=== PATIENT | female | born 1960 | race African-American/Black ===

== ENCOUNTER 2016-11-08 13:37 | Inpatient (IN) | payer MEDICAID ==
[~2016-11-08] VITALS: Ht 167.6 cm; Wt 47.6 kg
[2016-11-08] MEDS ORDERED: MORPHINE SULFATE 4 MG/ML CPJ (NOT FOR IM USE) IV ONE (14:45)
[2016-11-08 14:46] LABS: HEMATOCRIT. 25.1 % (36.0-48.0); HEMOGLOBIN. 8.6 g/dL (12.0-16.0); MEAN CORPUSCULAR HEMOGLOBIN 29.3 pg (28.0-32.0); MEAN CORPUSCULAR VOLUME 85.6 fL (81.0-99.0); MEAN PLATELET VOLUME 7.5 fl (7.4-10.4); PLATELET 233 x1000/uL (130-400); RED BLOOD CELL COUNT 2.93 mill/uL (4.2-5.4); RED CELL DISTRIBUTION WIDTH 22.3 % (11.6-14.6)
[2016-11-08 14:54] LABS: INR 1.1; PROTHROMBIN TIME 11.8 sec (9.4-11.6)
[2016-11-08 14:55] LABS: CHLORIDE 100 mEq/L (98-107)
[2016-11-08 14:59] LABS: CARBON DIOXIDE 32 mEq/L (21-32)
[2016-11-08 15:04] LABS: TROPONIN I < 0.02 ng/mL (0.00-0.04)
[2016-11-08] MEDS ORDERED: KCL 20MEQ/100ML PREMIX 100 ML IV ONE (15:15)
[2016-11-08] MEDS ORDERED: POTASSIUM CHLORIDE 20MEQ TABLET SR PO ONE (15:15)
[2016-11-08 15:39] LABS: PLATELET ESTIMATE NORMAL
[2016-11-08] MEDS ORDERED: MAGNESIUM 2 G PREMIX 50 ML IV ONE (15:45)
[2016-11-08 16:10] LABS: HCG SCREEN NEGATIVE
[2016-11-08] MEDS ORDERED: KETOROLAC 30MG/ML VIAL IV ONE (19:15)
[2016-11-08 19:50] LABS: CLARITY URINE CLEAR (CLEAR); COLOR URINE DARK YELLOW (YELLOW); GLUCOSE URINE NEGATIVE (NEGATIVE); KETONES URINE NEGATIVE (NEGATIVE); LEUKOCYTE ESTERASE URINE NEGATIVE (NEGATIVE); NITRITE URINE NEGATIVE (NEGATIVE); OCCULT BLOOD URINE NEGATIVE (NEGATIVE); PH URINE 5.5 (4.5-8.0); PROTEIN URINE 1+ (NEGATIVE); SPECIFIC GRAVITY URINE 1.024 (1.005-1.030)
[2016-11-08 20:00] VITALS: BP 128/81
[2016-11-08 20:16] VITALS: BP 128/81
[2016-11-08] MEDS ORDERED: ONDANSETRON HCL 4MG/2ML VIAL IV PRN (22:15)
[2016-11-08] MEDS ORDERED: HYDR-3933 PO (22:20)
[2016-11-08] MEDS ORDERED: WARF2TAB55 PO (22:21)
[2016-11-08] MEDS ORDERED: ONDA4TAB5 PO (22:21)
[2016-11-08] MEDS ORDERED: DEXA4TAB PO (22:27)
[2016-11-08] MEDS ORDERED: OMEP20CA10 PO (22:27)
[2016-11-08] MEDS ORDERED: TRAZ-132 PO (22:27)
[2016-11-08] MEDS ORDERED: SENN-22 PO (22:27)
[2016-11-08] MEDS ORDERED: SERT50TA PO (22:27)
[2016-11-08] MEDS ORDERED: DIPH25CA83 PO (22:27)
[2016-11-08] MEDS ORDERED: MORP15TA67 PO (22:28)
[2016-11-08] MEDS ORDERED: DIPHENHYDRAMINE 25MG CAPSULE PO PRN (22:46)
[2016-11-08] MEDS: HYDROCODONE/ACETAMINOPHEN 10/325MG TABLET PO PRN (23:04)
[2016-11-08] MEDS: TRAZODONE HCL 100MG TABLET PO SCH (23:28)
[2016-11-09] VITALS: BP 119/85
[2016-11-09 04:00] VITALS: BP 115/71
[2016-11-09] MEDS: MORPHINE SULFATE 2 MG/ML CPJ (NOT FOR IM USE) IV PRN ×3 (05:49→21:21)
[2016-11-09] MEDS: OMEPRAZOLE 20MG CAPSULE EXTENDED RELEASE PO SCH (06:45)
[2016-11-09 08:00] VITALS: BP 109/79
[2016-11-09] MEDS: DEXAMETHASONE 4MG TABLET PO SCH (08:08)
[2016-11-09] MEDS: ENOXAPARIN 30MG/0.3ML SYR SUBCUT SCH (08:08)
[2016-11-09] MEDS: SENNOSIDES 8.6MG TABLET PO SCH (08:08)
[2016-11-09 08:31] LABS: CARBON DIOXIDE 30 mEq/L (21-32)
[2016-11-09 08:52] LABS: CHLORIDE 99 mEq/L (98-107)
[2016-11-09] MEDS ORDERED: ENOXAPARIN 40MG/0.4ML SYR SUBCUT SCH (09:00)
[2016-11-09] MEDS ORDERED: DEXAMETHASONE 4MG TABLET PO SCH (09:00)
[2016-11-09] MEDS: HYDROCODONE/ACETAMINOPHEN 10/325MG TABLET PO PRN (09:05)
[2016-11-09] MEDS ORDERED: POTASSIUM CHLORIDE 20MEQ TABLET SR PO NR ×2 (11:15→22:15)
[2016-11-09 11:34] VITALS: BP 119/77
[2016-11-09 11:42] LABS: HEMOGLOBIN. 9.1 g/dL (12.0-16.0); MEAN CORPUSCULAR HEMOGLOBIN 29.2 pg (28.0-32.0); MEAN CORPUSCULAR VOLUME 86.5 fL (81.0-99.0); MEAN PLATELET VOLUME 8.8 fl (7.4-10.4); PLATELET 239 x1000/uL (130-400); RED BLOOD CELL COUNT 3.12 mill/uL (4.2-5.4); RED CELL DISTRIBUTION WIDTH 21.9 % (11.6-14.6)
[2016-11-09] MEDS: LORAZEPAM 2MG/ML CPJ IV PRN (12:53)
[2016-11-09 15:58] VITALS: BP 103/76
[2016-11-09] MEDS: TRAZODONE HCL 100MG TABLET PO SCH (17:18)
[2016-11-09] MEDS: DOCUSATE SODIUM 100MG CAPSULE PO SCH (17:18)
[2016-11-09] MEDS ORDERED: WARFARIN SODIUM 2.5MG TABLET PO SCH (18:00)
[2016-11-09 20:00] VITALS: BP 123/96
[2016-11-09] MEDS ORDERED: POTASSIUM CHLORIDE INJ 40 MEQ in DEXT 5% WATER 250 ML IV NR (21:00)
[2016-11-10] VITALS (7 sets, daily range): BP systolic 99–136; BP diastolic 75–91
[2016-11-10] MEDS: MORPHINE SULFATE 2 MG/ML CPJ (NOT FOR IM USE) IV PRN ×4 (02:17→21:53)
[2016-11-10] MEDS: HYDROCODONE/ACETAMINOPHEN 10/325MG TABLET PO PRN ×2 (04:10→09:00)
[2016-11-10] MEDS: LORAZEPAM 2MG/ML CPJ IV PRN ×2 (06:10→09:56)
[2016-11-10] MEDS: OMEPRAZOLE 20MG CAPSULE EXTENDED RELEASE PO SCH ×3 (06:12→06:29)
[2016-11-10 06:47] LABS: PROTHROMBIN TIME 10.7 sec (9.4-11.6)
[2016-11-10 06:48] LABS: PLATELET ESTIMATE NORMAL
[2016-11-10 06:51] LABS: HEMATOCRIT 27.7 % (36.0-48.0); HEMOGLOBIN 9.5 g/dL (12.0-16.0)
[2016-11-10] MEDS: DOCUSATE SODIUM 100MG CAPSULE PO SCH ×2 (08:43→16:35)
[2016-11-10] MEDS: ONDANSETRON HCL 4MG TABLET PO PRN (08:43)
[2016-11-10] MEDS: DEXAMETHASONE 4MG TABLET PO SCH (08:45)
[2016-11-10] MEDS: SENNOSIDES 8.6MG TABLET PO SCH (08:45)
[2016-11-10] MEDS: ENOXAPARIN 30MG/0.3ML SYR SUBCUT SCH (08:47)
[2016-11-10] MEDS ORDERED: NA PHOS,M-B/NA PHOS,DI-BA ENEMA 118ML PR NR (11:15)
[2016-11-10] MEDS ORDERED: DIATR MEGLU/DIATRIZOATE SOLN 30ML PO SCH (12:00)
[2016-11-10 16:14] LABS: CARBON DIOXIDE 30 mEq/L (21-32); CHLORIDE 100 mEq/L (98-107)
[2016-11-10] MEDS: TRAZODONE HCL 100MG TABLET PO SCH (16:34)
[2016-11-10] MEDS ORDERED: WARFARIN SODIUM 2.5MG TABLET PO SCH (18:00)
[2016-11-10] MEDS ORDERED: DIATR MEGLU/DIATRIZOATE SOLN 30ML PO NR (22:00)
[2016-11-10] MEDS: SODIUM CHLORIDE 0.9% 1,000 ML IV SCH (23:33)
[2016-11-11] VITALS: BP 122/85
[2016-11-11] MEDS: MORPHINE SULFATE 2 MG/ML CPJ (NOT FOR IM USE) IV PRN ×2 (01:59→09:53)
[2016-11-11] MEDS: LORAZEPAM 2MG/ML CPJ IV PRN ×3 (03:15→19:58)
[2016-11-11 03:39] VITALS: BP 112/86
[2016-11-11] MEDS ORDERED: DIATR MEGLU/DIATRIZOATE SOLN 30ML PO NR ×2 (06:00→08:00)
[2016-11-11] MEDS: OMEPRAZOLE 20MG CAPSULE EXTENDED RELEASE PO SCH (06:03)
[2016-11-11] MEDS: DOCUSATE SODIUM 100MG CAPSULE PO SCH ×2 (08:11→17:38)
[2016-11-11] MEDS: DEXAMETHASONE 4MG TABLET PO SCH (08:11)
[2016-11-11] MEDS: SENNOSIDES 8.6MG TABLET PO SCH (08:11)
[2016-11-11] MEDS: ENOXAPARIN 30MG/0.3ML SYR SUBCUT SCH (08:12)
[2016-11-11 08:22] VITALS: BP 113/87
[2016-11-11] MEDS: ONDANSETRON HCL 4MG TABLET PO PRN ×2 (11:18→23:09)
[2016-11-11] MEDS ORDERED: SODIUM CHLORIDE 0.9% 10ML VIAL ONE (11:19)
[2016-11-11] MEDS ORDERED: IOHEXOL-300 100 ML BOTTLE ONE (11:19)
[2016-11-11 12:25] VITALS: BP 106/71
[2016-11-11 16:05] VITALS: BP 107/74
[2016-11-11] MEDS: TRAZODONE HCL 100MG TABLET PO SCH (17:38)
[2016-11-11] MEDS: SODIUM CHLORIDE 0.9% 1,000 ML IV SCH ×2 (17:45→19:59)
[2016-11-11 19:52] LABS: HEMATOCRIT 25.8 % (36.0-48.0); HEMOGLOBIN 8.7 g/dL (12.0-16.0)
[2016-11-11 19:57] LABS: CHLORIDE 94 mEq/L (98-107); INR 1.3
[2016-11-11 20:00] VITALS: BP 123/85
[2016-11-11 20:02] LABS: CARBON DIOXIDE 30 mEq/L (21-32)
[2016-11-12] VITALS: BP 118/86
[2016-11-12] MEDS: MORPHINE SULFATE 2 MG/ML CPJ (NOT FOR IM USE) IV PRN ×3 (02:06→13:40)
[2016-11-12 04:00] VITALS: BP_SYST 112; BP_SYST 113; BP_DIAS 75; BP_DIAS 95
[2016-11-12] MEDS: LORAZEPAM 2MG/ML CPJ IV PRN ×2 (05:39→22:23)
[2016-11-12] MEDS: OMEPRAZOLE 20MG CAPSULE EXTENDED RELEASE PO SCH (06:43)
[2016-11-12 06:47] LABS: HEMOGLOBIN 9.2 g/dL (12.0-16.0)
[2016-11-12 06:59] LABS: INR 1.2; PROTHROMBIN TIME 12.3 sec (9.4-11.6)
[2016-11-12 08:00] VITALS: BP 124/88
[2016-11-12] MEDS: ENOXAPARIN 30MG/0.3ML SYR SUBCUT SCH (08:25)
[2016-11-12] MEDS: SENNOSIDES 8.6MG TABLET PO SCH (08:30)
[2016-11-12] MEDS: DOCUSATE SODIUM 100MG CAPSULE PO SCH ×2 (08:30→17:00)
[2016-11-12] MEDS: DEXAMETHASONE 4MG TABLET PO SCH (08:30)
[2016-11-12] MEDS: ONDANSETRON HCL 4MG/2ML VIAL IV PRN (08:44)
[2016-11-12] MEDS: SODIUM CHLORIDE 0.9% 1,000 ML IV SCH (08:45)
[2016-11-12] MEDS ORDERED: NA PHOS,M-B/NA PHOS,DI-BA ENEMA 118ML PR NR (10:00)
[2016-11-12] MEDS ORDERED: SODIUM CHLORIDE 0.9% 10ML VIAL ONE (10:55)
[2016-11-12] MEDS ORDERED: SIMETHICONE 40 MG/0.6 ML 30ML ONE ×2 (10:55→15:32)
[2016-11-12 12:00] VITALS: BP 128/89
[2016-11-12] MEDS ORDERED: MIDAZOLAM HCL 5 MG/5 ML VIAL ONE (15:32)
[2016-11-12] MEDS ORDERED: FENTANYL CITRATE/PF 50MCG/ML 2ML VIAL ONE (15:32)
[2016-11-12] MEDS ORDERED: MIDAZOLAM HCL 5 MG/5 ML VIAL IV PRN (15:48)
[2016-11-12] MEDS: TRAZODONE HCL 100MG TABLET PO SCH (17:00)
[2016-11-12 18:00] VITALS: BP 133/90
[2016-11-12] MEDS ORDERED: DEXTROSE 50% WATER 50ML SYRINGE IV PRN (18:15)
[2016-11-12 20:00] VITALS: BP 113/83
[2016-11-13] VITALS: BP 115/87
[2016-11-13] MEDS: MORPHINE SULFATE 2 MG/ML CPJ (NOT FOR IM USE) IV PRN ×4 (03:17→19:56)
[2016-11-13] MEDS: TOTAL PARENTERAL NUTRITION 1,000 ML IV SCH ×2 (03:24→20:03)
[2016-11-13 04:00] VITALS: BP 138/80
[2016-11-13] MEDS: BLOOD SUGAR DIAGNOSTIC STRIP TEST SCH ×4 (06:17→17:14)
[2016-11-13] MEDS: INSULIN LISPRO (MEDIUM DOSE) 100 UNITS/ML SUBCUT SCH ×4 (06:32→17:16)
[2016-11-13] MEDS: OMEPRAZOLE 20MG CAPSULE EXTENDED RELEASE PO SCH (06:33)
[2016-11-13 08:00] VITALS: BP 113/77
[2016-11-13 08:29] LABS: CARBON DIOXIDE 31 mEq/L (21-32); CHLORIDE 98 mEq/L (98-107); LDL CHOLESTEROL 13 mg/dL (5-100); PHOSPHORUS 2.2 mg/dL (2.5-4.9)
[2016-11-13 08:31] LABS: HDL CHOLESTEROL 66 mg/dL (40-59)
[2016-11-13] MEDS: DEXAMETHASONE 4MG TABLET PO SCH (08:40)
[2016-11-13] MEDS: SENNOSIDES 8.6MG TABLET PO SCH (08:40)
[2016-11-13] MEDS: DOCUSATE SODIUM 100MG CAPSULE PO SCH ×2 (08:41→17:16)
[2016-11-13] MEDS: ENOXAPARIN 30MG/0.3ML SYR SUBCUT SCH (08:41)
[2016-11-13 12:00] VITALS: BP 139/95
[2016-11-13] MEDS ORDERED: POTASSIUM CHLORIDE 20MEQ/PACKET PO SCH (15:00)
[2016-11-13 16:00] VITALS: BP 114/79
[2016-11-13] MEDS: TRAZODONE HCL 100MG TABLET PO SCH (17:16)
[2016-11-13 20:00] VITALS: BP 126/84
[2016-11-13] MEDS ORDERED: FAT EMULSIONS 250 ML IV SCH (21:00)
[2016-11-13] MEDS: HYDROCODONE/ACETAMINOPHEN 10/325MG TABLET PO PRN (21:49)
[2016-11-14] VITALS: BP 115/78
[2016-11-14] MEDS ORDERED: HYDROCODONE/ACETAMINOPHEN 10/325MG TABLET PO PRN (00:15)
[2016-11-14] MEDS: MORPHINE SULFATE 2 MG/ML CPJ (NOT FOR IM USE) IV PRN ×2 (00:22→04:20)
[2016-11-14] MEDS: BLOOD SUGAR DIAGNOSTIC STRIP TEST SCH ×4 (00:24→18:41)
[2016-11-14] MEDS: INSULIN LISPRO (MEDIUM DOSE) 100 UNITS/ML SUBCUT SCH ×4 (00:31→18:45)
[2016-11-14 04:00] VITALS: BP 114/82
[2016-11-14 08:00] VITALS: BP 113/72
[2016-11-14] MEDS: HYDROMORPHONE HCL/PF 2MG/ML CPJ IV PRN ×2 (08:56→19:42)
[2016-11-14] MEDS: FAMOTIDINE 20MG TABLET PO SCH ×2 (09:00→18:44)
[2016-11-14] MEDS: SENNOSIDES 8.6MG TABLET PO SCH (09:00)
[2016-11-14] MEDS: ENOXAPARIN 30MG/0.3ML SYR SUBCUT SCH (09:00)
[2016-11-14] MEDS: DOCUSATE SODIUM 100MG CAPSULE PO SCH ×2 (09:00→17:00)
[2016-11-14] MEDS: DEXAMETHASONE 4MG TABLET PO SCH (09:00)
[2016-11-14 11:59] VITALS: BP 128/86
[2016-11-14] MEDS: LORAZEPAM 2MG/ML CPJ IV PRN ×2 (12:49→22:35)
[2016-11-14] MEDS: TOTAL PARENTERAL NUTRITION 1,000 ML IV SCH (13:02)
[2016-11-14 13:28] LABS: CARBON DIOXIDE 29 mEq/L (21-32); CHLORIDE 96 mEq/L (98-107); PHOSPHORUS 1.5 mg/dL (2.5-4.9); PREALBUMIN 8.6 mg/dL (20.0-40.0)
[2016-11-14 16:00] VITALS: BP 103/70
[2016-11-14] MEDS: TRAZODONE HCL 100MG TABLET PO SCH (18:44)
[2016-11-14 20:00] VITALS: BP 94/70
[2016-11-15] VITALS (7 sets, daily range): BP systolic 100–119; BP diastolic 66–86
[2016-11-15] MEDS: HYDROMORPHONE HCL/PF 2MG/ML CPJ IV PRN ×4 (04:14→21:40)
[2016-11-15] MEDS: INSULIN LISPRO (MEDIUM DOSE) 100 UNITS/ML SUBCUT SCH ×5 (06:00→23:52)
[2016-11-15] MEDS: BLOOD SUGAR DIAGNOSTIC STRIP TEST SCH ×5 (06:55→23:51)
[2016-11-15] MEDS: LORAZEPAM 2MG/ML CPJ IV PRN ×2 (08:30→15:25)
[2016-11-15] MEDS: DEXAMETHASONE 4MG TABLET PO SCH (08:30)
[2016-11-15] MEDS: SENNOSIDES 8.6MG TABLET PO SCH (08:30)
[2016-11-15] MEDS: ENOXAPARIN 30MG/0.3ML SYR SUBCUT SCH (08:30)
[2016-11-15] MEDS: FAMOTIDINE 20MG TABLET PO SCH ×2 (08:30→17:32)
[2016-11-15] MEDS: DOCUSATE SODIUM 100MG CAPSULE PO SCH ×3 (08:30→16:59)
[2016-11-15] MEDS: TOTAL PARENTERAL NUTRITION 1,000 ML IV SCH (08:50)
[2016-11-15] MEDS: TRAZODONE HCL 100MG TABLET PO SCH (17:32)
[2016-11-16] VITALS: BP 100/64
[2016-11-16] MEDS: TOTAL PARENTERAL NUTRITION 1,000 ML IV SCH ×2 (01:10→17:40)
[2016-11-16 04:00] VITALS: BP 118/84
[2016-11-16] MEDS: HYDROMORPHONE HCL/PF 2MG/ML CPJ IV PRN ×3 (04:41→20:24)
[2016-11-16] MEDS: BLOOD SUGAR DIAGNOSTIC STRIP TEST SCH ×3 (05:40→17:40)
[2016-11-16] MEDS: INSULIN LISPRO (MEDIUM DOSE) 100 UNITS/ML SUBCUT SCH ×3 (05:41→17:40)
[2016-11-16 08:00] VITALS: BP 122/80
[2016-11-16] MEDS: DOCUSATE SODIUM 100MG CAPSULE PO SCH ×2 (08:18→15:54)
[2016-11-16] MEDS ORDERED: HYDROMORPHONE HCL/PF 2MG/ML CPJ IV PRN (08:45)
[2016-11-16] MEDS: DEXAMETHASONE 4MG TABLET PO SCH (08:46)
[2016-11-16] MEDS: SENNOSIDES 8.6MG TABLET PO SCH (08:46)
[2016-11-16] MEDS: FAMOTIDINE 20MG TABLET PO SCH ×2 (08:46→17:40)
[2016-11-16] MEDS: ENOXAPARIN 30MG/0.3ML SYR SUBCUT SCH (08:46)
[2016-11-16] MEDS: LORAZEPAM 2MG/ML CPJ IV PRN ×2 (08:47→15:22)
[2016-11-16] MEDS ORDERED: PHYTONADIONE 10MG/ML AMP SUBCUT SCH (09:00)
[2016-11-16 11:44] VITALS: BP 113/79
[2016-11-16 15:41] VITALS: BP 111/78
[2016-11-16] MEDS: TRAZODONE HCL 100MG TABLET PO SCH (17:40)
[2016-11-16 20:00] VITALS: BP 103/74
[2016-11-16] MEDS ORDERED: FAT EMULSIONS 250 ML IV SCH (21:00)
[2016-11-17] VITALS: BP 109/77
[2016-11-17] MEDS: BLOOD SUGAR DIAGNOSTIC STRIP TEST SCH ×5 (00:13→23:50)
[2016-11-17] MEDS: ONDANSETRON HCL 4MG/2ML VIAL IV PRN (00:29)
[2016-11-17] MEDS: HYDROMORPHONE HCL/PF 2MG/ML CPJ IV PRN ×5 (00:29→18:14)
[2016-11-17] MEDS: INSULIN LISPRO (MEDIUM DOSE) 100 UNITS/ML SUBCUT SCH ×5 (00:29→23:50)
[2016-11-17 04:00] VITALS: BP 106/79
[2016-11-17 08:00] VITALS: BP 106/82
[2016-11-17] MEDS: SENNOSIDES 8.6MG TABLET PO SCH (08:53)
[2016-11-17] MEDS: DOCUSATE SODIUM 100MG CAPSULE PO SCH ×2 (08:53→17:00)
[2016-11-17] MEDS: DEXAMETHASONE 4MG TABLET PO SCH (08:54)
[2016-11-17] MEDS: FAMOTIDINE 20MG TABLET PO SCH ×2 (08:54→17:00)
[2016-11-17] MEDS: ENOXAPARIN 30MG/0.3ML SYR SUBCUT SCH (08:55)
[2016-11-17] MEDS: TOTAL PARENTERAL NUTRITION 1,000 ML IV SCH (09:08)
[2016-11-17] MEDS: SODIUM CHLORIDE 0.9% 1,000 ML IV SCH (09:09)
[2016-11-17 12:00] VITALS: BP 106/71
[2016-11-17] MEDS: LORAZEPAM 2MG/ML CPJ IV PRN (12:25)
[2016-11-17 15:09] LABS: CARBON DIOXIDE 33 mEq/L (21-32); CHLORIDE 97 mEq/L (98-107)
[2016-11-17 16:00] VITALS: BP 115/90
[2016-11-17] MEDS: TRAZODONE HCL 100MG TABLET PO SCH (17:33)
[2016-11-17 20:00] VITALS: BP 114/77
[2016-11-17] MEDS ORDERED: SODIUM CHLORIDE 0.9% 1000ML BAG (SEPSIS BOLUS) IV SCH (21:30)
[2016-11-17 23:22] LABS: MEAN CORPUSCULAR HEMOGLOBIN 29.7 pg (28.0-32.0); MEAN CORPUSCULAR VOLUME 88.1 fL (81.0-99.0); RED BLOOD CELL COUNT 2.32 mill/uL (4.2-5.4); RED CELL DISTRIBUTION WIDTH 22.8 % (11.6-14.6)
[2016-11-17 23:27] LABS: AMMONIA 20 uMol/L (<32)
[2016-11-17 23:28] LABS: CARBON DIOXIDE 30 mEq/L (21-32); CHLORIDE 98 mEq/L (98-107)
[2016-11-17 23:30] LABS: HEMATOCRIT. 20.5 % (36.0-48.0); HEMOGLOBIN. 6.9 g/dL (12.0-16.0)
[2016-11-17] MEDS: SERTRALINE HCL 50MG TABLET PO SCH (23:37)
[2016-11-18] VITALS (13 sets, daily range): BP systolic 91–136; BP diastolic 65–89
[2016-11-18] MEDS: TOTAL PARENTERAL NUTRITION 1,000 ML IV SCH (00:05)
[2016-11-18 00:13] LABS: PLATELET ESTIMATE NORMAL
[2016-11-18 00:21] LABS: PLATELET 172 x1000/uL (130-400)
[2016-11-18] MEDS: LORAZEPAM 2MG/ML CPJ IV PRN ×2 (05:49→13:38)
[2016-11-18] MEDS: HYDROMORPHONE HCL/PF 2MG/ML CPJ IV PRN ×5 (05:50→23:03)
[2016-11-18] MEDS: INSULIN LISPRO (MEDIUM DOSE) 100 UNITS/ML SUBCUT SCH ×4 (06:00→23:13)
[2016-11-18] MEDS: BLOOD SUGAR DIAGNOSTIC STRIP TEST SCH ×4 (06:25→23:12)
[2016-11-18] MEDS: SODIUM CHLORIDE 0.9% 1,000 ML IV SCH (06:42)
[2016-11-18] MEDS: DOCUSATE SODIUM 100MG CAPSULE PO SCH ×2 (07:56→16:12)
[2016-11-18] MEDS: SERTRALINE HCL 50MG TABLET PO SCH (08:17)
[2016-11-18] MEDS: FAMOTIDINE 20MG TABLET PO SCH ×2 (08:17→17:39)
[2016-11-18] MEDS: DEXAMETHASONE 4MG TABLET PO SCH (08:17)
[2016-11-18] MEDS: SENNOSIDES 8.6MG TABLET PO SCH (08:17)
[2016-11-18] MEDS: ENOXAPARIN 30MG/0.3ML SYR SUBCUT SCH (08:17)
[2016-11-18] MEDS: TRAZODONE HCL 100MG TABLET PO SCH (17:39)
[2016-11-19] MEDS: BLOOD SUGAR DIAGNOSTIC STRIP TEST SCH (05:46)
[2016-11-19] MEDS: INSULIN LISPRO (MEDIUM DOSE) 100 UNITS/ML SUBCUT SCH (05:47)
== END 2016-11-19 06:55 | disposition left against medical advice (07) | DRG 247 ==
LOC: ER 15:47 → 8WST 17:33 → EDBEDREQ 17:36 → ENRESERV 17:57
PROVIDERS: ADMIT Internal Medicine; ATTEND Internal Medicine
PROC: 0DBN8ZX Excision of Sigmoid Colon, Via Natural or Artificial Opening Endoscopic, Diagnostic (ICD-10-PCS; principal; 2016-11-12 15:00)
PROC: 30233N1 Transfusion of Nonautologous Red Blood Cells into Peripheral Vein, Percutaneous Approach (ICD-10-PCS; 2016-11-18)
DX: K56.69 Other intestinal obstruction (principal); E43 Unspecified severe protein-calorie malnutrition; E87.0 Hyperosmolality and hypernatremia; C18.9 Malignant neoplasm of colon, unspecified; K59.39 Other megacolon; E83.42 Hypomagnesemia; E86.0 Dehydration; Z86.718 Personal history of other venous thrombosis and embolism; D63.0 Anemia in neoplastic disease; E87.6 Hypokalemia; D64.9 Anemia, unspecified; F17.210 Nicotine dependence, cigarettes, uncomplicated; K64.8 Other hemorrhoids; R62.7 Adult failure to thrive; Z68.1 Body mass index [BMI] 19.9 or less, adult; Z92.21 Personal history of antineoplastic chemotherapy; Z92.3 Personal history of irradiation; Z90.49 Acquired absence of other specified parts of digestive tract; Z88.6 Allergy status to analgesic agent
CPT/HCPCS: 36415; 70450; 74000; 74176; 74177; 80048; 80053; 80061; 81001; 82140; 82962; 83690; 83735; 83880; 84100; 84134; 84484; 84703; 85014; 85018; 85025; 85610; 86850; 86900; 86920; 88305; 93005; 93970; 96374; 96375; 97110; 97116; 97162; 99285; A4216; C1893; J1170; J1650; J1815; J1885; J2060; J2250; J2270; J2405; J3010; J3430; J3475; J3480; J7030; J7040; J7060; J8540; P9016; Q0162; Q0163; Q9963; Q9967